=== PATIENT | male | born 2005 | race Caucasian/White ===

== ENCOUNTER 2024-11-05 09:20 | Emergency (ER) | payer OTHER, SELFPAY ==
[2024-11-05 09:23] VITALS: BP 122/83
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
== END 2024-11-05 10:26 | disposition home or self-care (01) ==
LOC: EMR 09:20
PROVIDERS: EMERGENCY PHYSICIAN Emergency Medicine; FAMILY PHYSICIAN Family Medicine
DX: S01.511A Laceration without foreign body of lip, initial encounter (principal); Y04.0XXA Assault by unarmed brawl or fight, initial encounter
CPT/HCPCS: 12011; 99282